=== PATIENT | female | born 1995 | race Caucasian/White ===

== ENCOUNTER 2023-09-24 20:02 | Emergency (ER) | payer MEDICAID ==
[~2023-09-24] VITALS: Ht 147.3 cm; Wt 64.8 kg
[2023-09-24 20:40] VITALS: BP 120/80; PULSE 85; RESP 14; TEMP 98.4; O2SAT 100
[2023-09-24] MEDS ORDERED: CETI10TA6 PO (22:39)
[2023-09-24] MEDS ORDERED: SULF1TAB48 MT (22:39)
[2023-09-24] MEDS ORDERED: CEPH500C2 MT (22:39)
[2023-09-24] MEDS ORDERED: MUPI15CR11 TP (22:39)
== END 2023-09-24 23:06 | disposition home or self-care (01) ==
LOC: ER 20:02
DX: H60.93 Unspecified otitis externa, bilateral (principal); L73.9 Follicular disorder, unspecified; H60.13 Cellulitis of external ear, bilateral
CPT/HCPCS: 99281; 99283

== ENCOUNTER 2024-08-17 10:06 | Emergency (ER) | payer MEDICAID ==
[~2024-08-17] VITALS: Ht 157.5 cm; Wt 65.0 kg
[~2024-08-17 10:06] MED LIST: CEPH500C2 MT; CETI10TA6 PO; MUPI15CR11 TP; SULF1TAB48 MT
[2024-08-17 10:29] VITALS: O2SAT 99
[2024-08-17] MEDS: ACETAMINOPHEN 325MG TABLET PO ONE (11:28)
[2024-08-17] MEDS ORDERED: IBUP-2028 MT (12:31)
[2024-08-17 13:29] VITALS: BP 134/79; PULSE 87; RESP 18; TEMP 36.83628; O2SAT 99
== END 2024-08-17 13:29 | disposition home or self-care (01) ==
LOC: ER 10:24
DX: M25.512 Pain in left shoulder (principal); Z98.890 Other specified postprocedural states; V43.52XA Car driver injured in collision with other type car in traffic accident, initial encounter; Y93.89 Activity, other specified; Y92.89 Other specified places as the place of occurrence of the external cause; Y99.8 Other external cause status
CPT/HCPCS: 73030; 99283